=== PATIENT | male | born 1980 | race Caucasian/White ===

== ENCOUNTER → 2016-09-15 | Outpatient (CLI) | payer OTHER ==
[~2016-09-15] MED LIST: NO HOME MEDICATIONS
== END ==
LOC: RAD 09:43
DX: M79.671 Pain in right foot (principal); M79.89 Other specified soft tissue disorders

== ENCOUNTER → 2017-12-24 | Outpatient (CLI) | payer OTHER ==
[2013-08-11 23:49] VITALS: BP 113/75
[2017-12-24 09:56] LABS: EOS # 0.1 (0.04-0.40); EOS % 1.4 % (0.0-4.0); HEMATOCRIT 41.9 % (42.0-52.0); HEMOGLOBIN 14.3 g/dL (13.5-18.0); LYMPH# 1.4 (1.50-4.00); MEAN CELL VOLUME 89 fl (78-100); MEAN CORPUSCULAR HEMOGLOBIN 30 pg (27-31); MEAN CORPUSCULAR HGB CONC 34 g/dL (33-37); MEAN PLATELET VOLUME 9.6 fl (7.4-10.4); MONO # 0.9 (0.20-0.80); NEU # 6.3 (1.40-6.50); PLATELET COUNT 297 K/mm3 (130-400); RED BLOOD COUNT 4.72 M/mm3 (4.20-5.60); RED CELL DISTRIBUTION WIDTH 12.3 % (11.5-14.5); WHITE BLOOD COUNT 8.8 K/mm3 (4.8-10.8)
[2017-12-24 10:19] LABS: ALBUMIN 3.8 g/dL (3.5-5.0); BUN/CREATININE RATIO 15.7 (6.0-26.0); CALCIUM 8.8 mg/dL (8.4-10.2); POTASSIUM 3.6 mmol/L (3.6-5.0); TOTAL BILIRUBIN 1.2 mg/dL (0.2-1.3); TOTAL PROTEIN 7.1 g/dL (6.3-8.2)
== END ==
LOC: LAB 09:21
PROVIDERS: Nurse Practitioner Family
DX: R68.89 Other general symptoms and signs (principal); R53.81 Other malaise; R50.9 Fever, unspecified

== ENCOUNTER → 2018-03-29 | Outpatient (CLI) | payer OTHER ==
[2013-08-11 23:49] VITALS: BP 113/75
== END ==
LOC: RAD 15:44
DX: S61.247A Puncture wound with foreign body of left little finger without damage to nail, initial encounter (principal)

== ENCOUNTER → 2021-01-27 | Outpatient (CLI) | payer OTHER | LOC: RAD 08:46 | DX: M79.671 Pain in right foot (principal) ==